=== PATIENT | male | born 1960 | race Two or more races ===

== ENCOUNTER 2019-03-29 15:00 | Inpatient (IN) | payer OTHER ==
[~2019-03-29] VITALS: Ht 172.7 cm; Wt 86.0 kg
[2019-03-29] MEDS ORDERED: None per pt (15:15)
[2019-03-29 15:37] LABS: BASOPHILS # (AUTO) 0.03 x10^3/uL (0-0.1); BASOPHILS % (AUTO) 0 % (0-1); EOSINOPHILS # (AUTO) 0.21 x10^3/uL (0-0.4); EOSINOPHILS % (AUTO) 2 % (1-7); LYMPHOCYTES % (AUTO) 30 % (22-44); MD NO; MEAN CORPUSCULAR HEMOGLOBIN 31.3 pg (27.5-34.5); MEAN CORPUSCULAR HGB CONC 33.6 g/dL (33.2-36.2); MEAN CORPUSCULAR VOLUME 93.1 fL (81-97); MEAN PLATELET VOLUME 8.2 fL (7.4-10.4); MONOCYTES # (AUTO) 0.78 x10^3/uL (0.2-0.8); MONOCYTES % (AUTO) 9 % (2-9); NEUTROPHILS # (AUTO) 5.42 x10^3/uL (1.8-6.8); NEUTROPHILS % (AUTO) 59 % (42-75); PLATELET COUNT 299 x10^3/uL (130-400); RED BLOOD COUNT 4.54 x10^6/uL (4.38-5.82); RED CELL DISTRIBUTION WIDTH 12.8 % (9.4-14.8)
[2019-03-29 15:46] LABS: INTERNATIONAL NORMALIZED RATIO 0.95 (0.93-1.1)
[2019-03-29 15:48] LABS: ALANINE AMINOTRANSFERASE 26 U/L (12-78); ALBUMIN 3.9 g/dL (3.4-5.0); ANION GAP 8 mmol/L (5-15); CALCIUM 8.5 mg/dL (8.5-10.1); CHLORIDE 106 mmol/L (98-107); CREATININE 1.09 mg/dL (0.7-1.3)
[2019-03-29 15:50] LABS: ALKALINE PHOSPHATASE 65 U/L (45-117); BILIRUBIN,TOTAL 0.2 mg/dL (0.2-1.0); TOTAL PROTEIN 7.5 g/dL (6.4-8.2)
[2019-03-29 15:55] LABS: HEMOGLOBIN A1C 5.8 % (4.2-6.3)
[2019-04-01] MEDS ORDERED: ROPIvacaine/PF 0.5%, 30 ML ONE ×3 (06:15→08:11)
[2019-04-01] MEDS ORDERED: KETOROLAC 60 MG/2 ML ONE (06:15)
[2019-04-01] MEDS ORDERED: TRANEXAMIC ACID 100 MG/ML, 10ML ONE ×2 (06:15→06:18)
[2019-04-01] MEDS ORDERED: VANCOMYCIN 1,000 MG ONE (06:16)
[2019-04-01] MEDS ORDERED: EPINEPHRINE 1 MG/ML, 1ML ONE (06:16)
[2019-04-01] MEDS ORDERED: SODIUM CHLORIDE 0.9% 50 ML ONE (06:16)
[2019-04-01 08:59] VITALS: BP 121/75
[2019-04-01] MEDS ORDERED: LACTATED RINGERS 1,000 ML IV SCH (09:04)
[2019-04-01] MEDS ORDERED: [UNRECOGNIZED DRUG - REMARK] PO (09:06)
[2019-04-01] MEDS ORDERED: vitamin c PO (09:06)
[2019-04-01] MEDS ORDERED: fish oil PO (09:06)
[2019-04-01] MEDS ORDERED: ACETAMINOPHEN 500 MG TABLET PO ONE (09:30)
[2019-04-01] MEDS ORDERED: GABAPENTIN 300 MG CAPSULE PO ONE (09:30)
[2019-04-01] MEDS ORDERED: MIDAZOLAM 1 MG/ML, 2ML ONE (10:08)
[2019-04-01] MEDS ORDERED: FENTANYL PF 250 MCG/5ML ONE (10:08)
[2019-04-01] MEDS ORDERED: PROPOFOL 10 MG/ML, 20ML ONE ×3 (10:11→11:59)
[2019-04-01] MEDS ORDERED: ROCURONIUM 10MG/ML,5ML ONE (11:59)
[2019-04-01] MEDS ORDERED: DEXAMETHASONE 4 MG/ML, 1ML ONE (11:59)
[2019-04-01] MEDS ORDERED: CEFAZOLIN 1,000 MG ONE (11:59)
[2019-04-01] MEDS ORDERED: GLYCOPYRROLATE 0.2MG/1ML, 5ML ONE (11:59)
[2019-04-01] MEDS ORDERED: NEOSTIGMINE 1 MG/ML, 10ML ONE (11:59)
[2019-04-01] MEDS ORDERED: ONDANSETRON 2MG/ML, 2ML ONE (11:59)
[2019-04-01] MEDS ORDERED: FENTANYL PF 100 MCG/2ML IV PRN (12:00)
[2019-04-01] MEDS ORDERED: MIDAZOLAM 1 MG/ML, 2ML IV PRN (12:00)
[2019-04-01] MEDS ORDERED: PROMETHAZINE 25 MG/ML, 1ML IV PRN (12:00)
[2019-04-01] MEDS ORDERED: ALBUTEROL/IPRATROPIUM 2.5MG/0.5MG, 3 ML NPPB PRN (12:00)
[2019-04-01] MEDS ORDERED: hydrALAzine 20 MG/ML, 1ML IV PRN (12:00)
[2019-04-01] MEDS ORDERED: OXYcodone 5 MG/5 ML ORAL.SOL UDC PO PRN (12:00)
[2019-04-01] MEDS ORDERED: SCOPOLAMINE PATCH, 1.5MG PATCH.TD72 TD PRN (12:00)
[2019-04-01] MEDS ORDERED: METOPROLOL 1 MG/ML, 5ML IV PRN (12:00)
[2019-04-01] MEDS ORDERED: DIAZEPAM 5 MG/ML, 2ML IVPush PRN (12:00)
[2019-04-01] MEDS ORDERED: ONDANSETRON 2MG/ML, 2ML IV PRN ×2 (12:00→12:30)
[2019-04-01] MEDS ORDERED: HYDROmorphone 2 MG/ML, 1ML IVPush PRN (12:00)
[2019-04-01] MEDS ORDERED: MEPERIDINE/PF 25MG/0.5ML IVPush PRN (12:00)
[2019-04-01] MEDS ORDERED: BISACODYL 10 MG SUPP PR PRN (12:30)
[2019-04-01] MEDS ORDERED: MAGNESIUM HYDROXIDE 8%, 30ML UDC PO PRN (12:30)
[2019-04-01] MEDS ORDERED: ONDANSETRON 4 MG TABLET PO PRN (12:30)
[2019-04-01] MEDS ORDERED: OXYcodone IR 5MG TABLET PO PRN (12:30)
[2019-04-01] MEDS ORDERED: SENNA/DOCUSATE TABLET PO PRN (12:30)
[2019-04-01] MEDS ORDERED: ZOLPIDEM 5MG TABLET PO PRN (12:30)
[2019-04-01] MEDS ORDERED: SCOPOLAMINE PATCH, 1.5MG PATCH.TD72 TD ONE (12:30)
[2019-04-01] MEDS ORDERED: DIPHENHYDRAMINE 50 MG CAPSULE PO PRN (12:30)
[2019-04-01] MEDS ORDERED: HYDROcodone/APAP 5/325 TABLET PO PRN (12:30)
[2019-04-01] MEDS ORDERED: ACETAMINOPHEN 650 MG/20.3 ML UDC PO PRN (12:30)
[2019-04-01] MEDS ORDERED: OXYcodone 5 MG/5 ML ORAL.SOL UDC ONE (12:45)
[2019-04-01 13:37] VITALS: BP 121/71
[2019-04-01] MEDS: NS + 20MEQ KCL 1,000 ML IV SCH (14:01)
[2019-04-01] MEDS: ASPIRIN 81 MG TABLET EC PO SCH (18:29)
[2019-04-01] MEDS ORDERED: CEFAZOLIN PMX 2GM/50ML 50 ML IVPB SCH (20:00)
[2019-04-01] MEDS: CEFAZOLIN PMX 2GM/100ML 100 ML IVPB SCH (20:06)
[2019-04-01 20:17] VITALS: BP 106/56
[2019-04-01] MEDS: DOCUSATE 100 MG CAPSULE PO SCH (21:01)
[2019-04-02 00:50] VITALS: BP 100/62
[2019-04-02] MEDS: NS + 20MEQ KCL 1,000 ML IV SCH (02:30)
[2019-04-02] MEDS: CEFAZOLIN PMX 2GM/100ML 100 ML IVPB SCH (04:11)
[2019-04-02 04:20] VITALS: BP 110/63
[2019-04-02] MEDS ORDERED: DEXAMETHASONE 4 MG/ML, 1ML IVPush SCH (06:00)
[2019-04-02 06:30] VITALS: BP 108/63
[2019-04-02] MEDS: ASPIRIN 81 MG TABLET EC PO SCH (06:44)
[2019-04-02] MEDS: DOCUSATE 100 MG CAPSULE PO SCH (08:06)
[2019-04-02] MEDS ORDERED: OXYC5CAP2 PO (10:43)
[2019-04-02] MEDS ORDERED: TRAM50TA2 PO (10:43)
[2019-04-02] MEDS ORDERED: MELO7.5T31 PO (10:44)
== END 2019-04-02 10:45 | disposition home or self-care (01) | DRG 470 ==
LOC: ORIP 04-01 08:14 → 4NOR 04-01 13:33 → DCLOUNGE 04-02 10:38
PROVIDERS: ADMIT Orthopaedic Surgery; ATTEND Orthopaedic Surgery
PROC: 0SRB06A Replacement of Left Hip Joint with Oxidized Zirconium on Polyethylene Synthetic Substitute, Uncemented, Open Approach (ICD-10-PCS; principal; 2019-04-01 12:00)
DX: M16.12 Unilateral primary osteoarthritis, left hip (principal); Z87.891 Personal history of nicotine dependence
CPT/HCPCS: 36415; 72170; 76000; 80053; 83036; 85014; 85018; 85025; 85610; 85730; 87081; 87147; 93005; C1713; G0378; J0171; J0690; J1100; J1885; J2250; J2405; J2704; J2710; J2795; J3010; J3370; J3480; C1776; J7120

== ENCOUNTER 2019-08-09 08:25 | Outpatient (CLI) | payer OTHER ==
[~2019-08-09 08:25] MED LIST: MELO7.5T31 PO; None per pt; OXYC5CAP2 PO; TRAM50TA2 PO; [UNRECOGNIZED DRUG - REMARK] PO; fish oil PO; vitamin c PO
[2019-08-09 08:52] LABS: ALBUMIN 3.6 g/dL (3.4-5.0); ANION GAP 7 mmol/L (5-15); CALCIUM 8.2 mg/dL (8.5-10.1); CHLORIDE 105 mmol/L (98-107); CREATININE 0.97 mg/dL (0.7-1.3)
[2019-08-09 09:04] LABS: ALANINE AMINOTRANSFERASE 21 U/L (12-78); ALKALINE PHOSPHATASE 64 U/L (45-117); BILIRUBIN,TOTAL 0.5 mg/dL (0.2-1.0); TOTAL PROTEIN 7.1 g/dL (6.4-8.2)
== END 2019-08-09 23:59 | disposition home or self-care (01) ==
LOC: LAB 08:25
PROVIDERS: ATTEND Nurse Practitioner
DX: Z00.00 Encounter for general adult medical examination without abnormal findings (principal)
CPT/HCPCS: 36415; 80053; 83036; 84443

== ENCOUNTER 2019-10-13 08:28 | Outpatient (CLI) | payer OTHER ==
[2019-10-13 08:54] LABS: ALANINE AMINOTRANSFERASE 26 U/L (12-78); ALBUMIN 3.6 g/dL (3.4-5.0); ANION GAP 4 mmol/L (5-15); CALCIUM 8.2 mg/dL (8.5-10.1); CHLORIDE 106 mmol/L (98-107); CHOLESTEROL, TOTAL 284 mg/dL (140-239); CREATININE 1.07 mg/dL (0.7-1.3)
[2019-10-13 08:56] LABS: ALKALINE PHOSPHATASE 62 U/L (45-117); BILIRUBIN,TOTAL 0.5 mg/dL (0.2-1.0); CHOL/HDL RATIO 6.6; HDL CHOL % 15 % (26-37); HDL CHOLESTEROL (DIRECT) 43 mg/dL (40-60); LDL CHOLESTEROL,CALCULATED 205 mg/dL (54-169); LDL/HDL RATIO 4.8 (0.5-3.0); TOTAL PROTEIN 7.3 g/dL (6.4-8.2); TRIGLYCERIDES 182 mg/dL (50-200); VLDL CHOLESTEROL 36 mg/dL (0-25)
== END 2019-10-13 23:59 | disposition home or self-care (01) ==
LOC: LAB 08:28
PROVIDERS: ATTEND Nurse Practitioner
DX: Z13.220 Encounter for screening for lipoid disorders (principal); E55.9 Vitamin D deficiency, unspecified
CPT/HCPCS: 36415; 80053; 80061; 82306; 82330; 83970